=== PATIENT | female | born 1980 | race Caucasian/White ===

== ENCOUNTER 2018-06-01 10:52 | Inpatient (IN) | payer MEDICAID ==
[~2018-06-01] VITALS: Ht 157.5 cm; Wt 54.7 kg
[2018-06-01 10:58] VITALS: Ht 157.5 cm; Wt 54.7 kg
[2018-06-01 11:35] LABS: BASOPHIL % 0.3 % (0-2); PLATELET COUNT 176 x10^3mcL (130-400); RED CELL DISTRIBUTION WIDTH 13.9 % (11.5-14.5)
[2018-06-01 11:48] LABS: ALKALINE PHOSPHATASE 210 U/L (46-116); ALT/SGPT 245 U/L (14-59); AST/SGOT 84 U/L (15-37); CALCIUM 8.7 mg/dL (8.5-10.1); CARBON DIOXIDE 25.5 mmol/L (21-32); CHLORIDE SERUM 100 mmol/L (98-107); GFR1 > 60 mL/min; GLUCOSE SERUM 122 mg/dL (74-106); LIPASE 179 IU/L (73-393); SODIUM SERUM 138 mmol/L (136-145); TOTAL PROTEIN, SERUM 7.2 g/dL (6.4-8.2)
[2018-06-01 11:49] LABS: ALBUMIN 3.2 g/dL (3.4-5.0)
[2018-06-01 11:51] LABS: POTASSIUM SERUM 2.8 mmol/L (3.5-5.1)
[2018-06-01 12:21] LABS: UA SPECIFIC GRAVITY >=1.030 (1.005-1.035); microscopic required? YES; urine erythrocyte 1+ (NEGATIVE)
[2018-06-01 15:26] VITALS: BP 96/65
[2018-06-01] MEDS ORDERED: METHIMAZOLE10 MG PO (15:56)
[2018-06-01] MEDS ORDERED: PROPRANOLOL HCL20 MG PO (16:00)
[2018-06-01 16:01] LABS: FREE T4 1.24 ng/dL (0.76-1.46); FREE THYROXINE INDEX 3.3 ug/dL (1.4-4.5); T4(THYROXINE) 9.1 ug/dL (4.7-13.3)
[2018-06-01 16:18] LABS: T3 TOTAL 0.57 ng/mL
[2018-06-01 16:20] LABS: MAGNESIUM 2.1 mg/dL (1.8-2.4); PHOSPHOROUS 2.6 mg/dL (2.5-4.9)
[2018-06-01 16:22] LABS: CHOLESTEROL/HDL RATIO 4.4
[2018-06-01 17:13] LABS: AMPHETAMINE QUAL UR NONE DETECTED (See below)
[2018-06-01 20:42] VITALS: BP 97/52
[2018-06-01 22:21] LABS: CARBON DIOXIDE 26.9 mmol/L (21-32); CHLORIDE SERUM 106 mmol/L (98-107); CREATININE SERUM 0.9 mg/dL (0.6-1.0); GFR1 > 60 mL/min; GLUCOSE SERUM 88 mg/dL (74-106); POTASSIUM SERUM 5.1 mmol/L (3.5-5.1); SODIUM SERUM 140 mmol/L (136-145)
[2018-06-02 05:57] VITALS: BP 90/46
[2018-06-02 07:16] LABS: CALCIUM 8.1 mg/dL (8.5-10.1); CHLORIDE SERUM 106 mmol/L (98-107); CREATININE SERUM 0.8 mg/dL (0.6-1.0); GFR1 > 60 mL/min; GLUCOSE SERUM 81 mg/dL (74-106); POTASSIUM SERUM 4.8 mmol/L (3.5-5.1); SODIUM SERUM 139 mmol/L (136-145)
[2018-06-02 07:49] LABS: BASOPHIL % 0.1 % (0-2)
[2018-06-02 08:29] LABS: PLATELET COUNT 122 x10^3mcL (130-400)
[2018-06-02 09:15] VITALS: BP 100/69
[2018-06-02 17:06] VITALS: BP 95/64
[2018-06-03 05:37] VITALS: BP 116/64
[2018-06-03 06:46] LABS: RED CELL DISTRIBUTION WIDTH 13.4 % (11.5-14.5)
[2018-06-03 06:59] LABS: ALKALINE PHOSPHATASE 157 U/L (46-116); ALT/SGPT 98 U/L (14-59); AST/SGOT 43 U/L (15-37); BILIRUBIN TOTAL 1.6 mg/dL (0.20-1.00); CALCIUM 7.7 mg/dL (8.5-10.1); CARBON DIOXIDE 26.9 mmol/L (21-32); CHLORIDE SERUM 104 mmol/L (98-107); CREATININE SERUM 0.6 mg/dL (0.6-1.0); GFR1 > 60 mL/min; GLUCOSE SERUM 118 mg/dL (74-106); LIPASE 68 IU/L (73-393); POTASSIUM SERUM 4.4 mmol/L (3.5-5.1); SODIUM SERUM 135 mmol/L (136-145)
[2018-06-03 07:08] LABS: BASOPHIL % 0 % (0-2); PLATELET COUNT 129 x10^3mcL (130-400)
[2018-06-03 07:09] LABS: AMYLASE 11 U/L (25-115); TOTAL PROTEIN, SERUM 5.6 g/dL (6.4-8.2)
[2018-06-03 09:20] VITALS: BP 120/80
[2018-06-03 17:55] VITALS: BP 112/70
[2018-06-03 20:28] VITALS: BP 114/81
[2018-06-04 05:32] VITALS: BP 123/76
[2018-06-04 07:27] LABS: BASOPHIL % 0.5 % (0-2); PLATELET COUNT 138 x10^3mcL (130-400); RED CELL DISTRIBUTION WIDTH 13.4 % (11.5-14.5)
[2018-06-04 07:32] LABS: CALCIUM 7.9 mg/dL (8.5-10.1); CARBON DIOXIDE 28.9 mmol/L (21-32); CHLORIDE SERUM 103 mmol/L (98-107); CREATININE SERUM 0.6 mg/dL (0.6-1.0); GFR1 > 60 mL/min; GLUCOSE SERUM 97 mg/dL (74-106); POTASSIUM SERUM 3.6 mmol/L (3.5-5.1); SODIUM SERUM 138 mmol/L (136-145)
[2018-06-04 09:02] VITALS: BP 123/83
[2018-06-04 18:17] VITALS: BP 142/83
[2018-06-04 20:53] VITALS: BP 140/80
[2018-06-05 05:35] VITALS: BP 126/69
[2018-06-05 06:31] LABS: BASOPHIL % 0.5 % (0-2); PLATELET COUNT 148 x10^3mcL (130-400); RED CELL DISTRIBUTION WIDTH 13.1 % (11.5-14.5)
[2018-06-05 06:48] LABS: CALCIUM 7.9 mg/dL (8.5-10.1); CARBON DIOXIDE 30.6 mmol/L (21-32); CHLORIDE SERUM 101 mmol/L (98-107); CREATININE SERUM 0.6 mg/dL (0.6-1.0); GFR1 > 60 mL/min; GLUCOSE SERUM 104 mg/dL (74-106); POTASSIUM SERUM 3.6 mmol/L (3.5-5.1); SODIUM SERUM 137 mmol/L (136-145)
[2018-06-05 08:28] VITALS: BP 126/84
[2018-06-05 14:02] VITALS: BP 126/84
[2018-06-05] MEDS ORDERED: PEP20 PO (14:07)
[2018-06-05] MEDS ORDERED: APAP/HYDROCODON1 T13 PO (14:07)
[2018-06-05 14:30] VITALS: BP 128/82
== END 2018-06-05 16:51 | disposition home or self-care (01) | DRG 710 ==
LOC: ED 10:52 → MU 14:15
PROVIDERS: Emergency Medicine; Family Medicine; Internal Medicine Gastroenterology; Surgery
PROC: BF10YZZ Fluoroscopy of Bile Ducts using Other Contrast (ICD-10-PCS; 2018-06-02 07:30)
PROC: BF10YZZ Fluoroscopy of Bile Ducts using Other Contrast (ICD-10-PCS; 2018-06-02 07:30)
PROC: 0FT40ZZ Resection of Gallbladder, Open Approach (ICD-10-PCS; principal; 2018-06-03)
PROC: 0FJ44ZZ Inspection of Gallbladder, Percutaneous Endoscopic Approach (ICD-10-PCS; 2018-06-03)
DX: A41.9 Sepsis, unspecified organism (principal); N17.0 Acute kidney failure with tubular necrosis; E43 Unspecified severe protein-calorie malnutrition; K80.63 Calculus of gallbladder and bile duct with acute cholecystitis with obstruction; R65.20 Severe sepsis without septic shock; E05.90 Thyrotoxicosis, unspecified without thyrotoxic crisis or storm; E87.6 Hypokalemia; K25.9 Gastric ulcer, unspecified as acute or chronic, without hemorrhage or perforation; D64.9 Anemia, unspecified; F15.10 Other stimulant abuse, uncomplicated; K21.9 Gastro-esophageal reflux disease without esophagitis; F12.10 Cannabis abuse, uncomplicated; R80.9 Proteinuria, unspecified; R74.0 Nonspecific elevation of levels of transaminase and lactic acid dehydrogenase [LDH]; Z68.21 Body mass index [BMI] 21.0-21.9, adult; F17.210 Nicotine dependence, cigarettes, uncomplicated
CPT/HCPCS: 43262; 83880; 84439; 94150; C1758; C1769; G0480; J1170; J1610; J1885; J2250; J2270; J2405; J2543; J2550; J2704; J2710; J3010; J3480; J3490; J7030; J7120; Q0092; Q0162; Q9967